=== PATIENT | male | born 1990 | race Two or more races ===

== ENCOUNTER 2021-05-02 17:45 | Emergency (ER) | payer SELFPAY ==
[~2021-05-02] VITALS: Ht 170.2 cm; Wt 120.7 kg
[2021-05-02] MEDS ORDERED: ZITHROMAX250 MG PO (19:23)
[2021-05-02] MEDS ORDERED: TESSALON PERLE100 MG PO (19:23)
== END 2021-05-02 20:05 | disposition home or self-care (01) ==
LOC: FSED 18:13
DX: R05 Cough (principal); J20.9 Acute bronchitis, unspecified; Z20.822 Contact with and (suspected) exposure to COVID-19
CPT/HCPCS: 71045; 99283

== ENCOUNTER 2021-05-05 08:55 | Emergency (ER) | payer SELFPAY ==
[~2021-05-05] VITALS: Ht 170.2 cm; Wt 120.2 kg
[~2021-05-05 08:55] MED LIST: TESSALON PERLE100 MG PO; ZITHROMAX250 MG PO
[2021-05-05] MEDS ORDERED: CASIRIVIMAB/IMDEVIMAB 10 ML in SODIUM CHLORIDE 0.9% 100 ML IV ONE (09:00)
[2021-05-05] MEDS ORDERED: SODIUM CHLORIDE 0.9% 100 ML ONE (09:11)
[2021-05-05] MEDS ORDERED: IBUPROFEN 400 MG TAB PO ONE (09:15)
== END 2021-05-05 10:03 | disposition home or self-care (01) ==
LOC: ER 09:06
DX: U07.1 COVID-19 (principal); R50.9 Fever, unspecified; R53.81 Other malaise; F17.210 Nicotine dependence, cigarettes, uncomplicated
CPT/HCPCS: 99283; J7050; U0002